=== PATIENT | male | born 1940 | race Two or more races ===

== ENCOUNTER 2018-02-24 13:00 | Outpatient (RCR) | payer OTHER | END 2018-03-15 | disposition home or self-care (01) | LOC: PTY 13:00 | PROVIDERS: ATTEND Internal Medicine | DX: M25.519 Pain in unspecified shoulder (principal); M11.0 Hydroxyapatite deposition disease ==

== ENCOUNTER 2018-03-17 10:50 | Outpatient (RCR) | payer OTHER | END 2018-04-15 | disposition home or self-care (01) | LOC: PTY 10:50 | PROVIDERS: ATTEND Internal Medicine | DX: M25.519 Pain in unspecified shoulder (principal); M11.0 Hydroxyapatite deposition disease ==